=== PATIENT | male | born 1985 | race American Indian/Alaskan Native ===

== ENCOUNTER 2018-11-02 07:10 | Emergency (ER) | payer SELFPAY ==
[2018-11-02] MEDS ORDERED: ALUM-MAG HYDROX-SIMETH 200-200-20MG/5ML PO ONE (08:53)
[2018-11-02] MEDS ORDERED: LIDOCAINE VISCOUS 2% PO ONE (08:53)
[2018-11-02 09:08] LABS: Eosinophils # (Auto) 0.2 K/mm3 (0.0-0.4); Eosinophils % (Auto) 4.5 % (0.0-4.3); Hematocrit 47.2 % (35.5-45.6); Hemoglobin 16.4 gm/dl (11.8-15.2); Lymphocytes # (Auto) 1.8 K/mm3 (1.2-5.4); Lymphocytes % (Auto) 48.3 % (13.4-35.0); Mean Corpuscular HGB Conc 35 % (32-34); Mean Corpuscular Volume 86 fl (84-94); Monocytes # (Auto) 0.4 K/mm3 (0.0-0.8); Monocytes % (Auto) 10.5 % (0.0-7.3); Platelet Count 209 K/mm3 (140-440); Red Blood Count 5.48 M/mm3 (3.65-5.03)
[2018-11-02] MEDS ORDERED: ALUM-MAG HYDROX-SIMETH 200-200-20MG/5ML ONE (09:17)
[2018-11-02] MEDS ORDERED: LIDOCAINE VISCOUS 2% ONE (09:18)
[2018-11-02 09:23] LABS: Alanine Aminotransferase 60 units/L (7-56); Albumin 4.9 g/dL (3.9-5); BUN/Creatinine Ratio 12; Blood Urea Nitrogen 14 mg/dL (9-20); Calcium 9.7 mg/dL (8.4-10.2); Hemolysis Index 4
--- NOTE | 2018-11-02 10:18 | Emergency Department Report ---
ED Chest Pain HPI - General Chief Complaint: Abdominal Pain Stated Complaint: CHEST AND ABD PAIN Time Seen by Provider: 11/02/18 08:44 Source: patient Mode of arrival: Ambulatory Limitations: No Limitations - History of Present Illness Initial Comments: 33-year-old male with no significant past medical history presents last complaining of chest pain and epigastric pain a.m. Pain is substernal and described as a constant pressure worse with inspiration. Patient also having intermittent moderate sharp pain to his right upper quadrant has since resolved. Patient googled his symptoms and thought he might be having a heart attack. Patient finished this about earlier that has since resolved. Now and nausea and diarrhea also reported. Patient traveled to and from [place] last month. He denies calf tenderness, leg edema, history of PE/DVT, smoking, cocaine use, family history of CAD, hypertension, diabetes, elevated cholesterol, or previous known cardiac history. Patient did have a cold last week that has since resolved. Severity scale (0 -10): 6 - Related Data Previous Rx's Medication Instructions Recorded Last Taken Type Omeprazole Magnesium [PriLOSEC Otc] 20 mg PO QDAY #20 tablet. 11/02/18 Unknown Rx traMADol [Ultram 50 MG tab] 50 mg PO Q6HR PRN #20 tablet 11/02/18 Unknown Rx Allergies Allergy/AdvReac Type Severity Reaction Status Date / Time No Known Allergies Allergy Unverified 11/02/18 07:24 Heart Score - HEART Score History: Slightly suspicious EKG: Normal Age: < 45 Risk factors: No known risk factors Troponin: < normal limit HEART Score: 0 ED Review of Systems ROS: Stated complaint: CHEST AND ABD PAIN Other details as noted in HPI Comment: All other systems reviewed and negative ED Past Medical Hx - Past Medical History Previous Medical History?: No - Surgical History Past Surgical History?: No - Social History Smoking Status: Never Smoker Substance Use Type: Marijuana - Medications Home Medications: Home Medications Medication Instructions Recorded Confirmed Last Taken Type Omeprazole Magnesium [PriLOSEC Otc] 20 mg PO QDAY #20 tablet. 11/02/18 Unknown Rx traMADol [Ultram 50 MG tab] 50 mg PO Q6HR PRN #20 tablet 11/02/18 Unknown Rx ED Physical Exam - General Limitations: No Limitations - Other Other exam information: General: no acute distress Head: Atraumatic, normocephalic Eyes: Normal appearance, pupils equal and reactive to light, extraocular movements intact ENT: normal oropharynx Neck: Normal appearance, no stridor, no meningismus, no midline tenderness. Cardiovascular: Regular rate and rhythm, anterior chest wall nontender Chest: Clear to auscultation, no wheezes, rales, or crackles Abdomen: nondistended, soft, nontender, no rebound or guarding Extremity: Normal appearance, no deformity, full range of motion, no calf tenderness or edema Neuro: Alert and oriented 3, clear speech, no gross motor or sensory deficit Skin: No warmth, erythema ED Course Vital Signs 11/02/18 11/02/18 11/02/18 07:28 08:21 08:48 Temperature 98.6 F Pulse Rate 87 72 Respiratory 18 12 12 Rate Blood Pressure 115/77 [Left] Blood Pressure 122/73 [Right] O2 Sat by Pulse 99 100 Oximetry LA score - La Score Age > 65: (0) No Aspirin use within the Past 7 Days: (0) No 3 or more CAD Risk Factors: (0) No 2 or more Angina events in past 24 hrs: (0) No Known CAD with more than 50% Stenosis: (0) No Elevated Cardiac Markers: (0) No ST Deviation Greater than 0.5mm: (0) No LA Score: 0 ED Medical Decision Making - Lab Data Result diagrams: 11/02/18 08:57 11/02/18 08:57 Lab Results 11/02/18 11/02/18 11/02/18 Range/Units 08:57 08:57 08:57 WBC 3.7 L (4.5-11.0) K/mm3 RBC 5.48 H (3.65-5.03) M/mm3 Hgb 16.4 H (11.8-15.2) gm/dl Hct 47.2 H (35.5-45.6) % MCV 86 (84-94) fl MCH 30 (28-32) pg MCHC 35 H (32-34) % RDW 13.0 L (13.2-15.2) % Plt Count 209 (140-440) K/mm3 Lymph % (Auto) 48.3 H (13.4-35.0) % Cannon % (Auto) 10.5 H (0.0-7.3) % Eos % (Auto) 4.5 H (0.0-4.3) % Baso % (Auto) 1.0 (0.0-1.8) % Lymph # 1.8 (1.2-5.4) K/mm3 Cannon # 0.4 (0.0-0.8) K/mm3 Eos # 0.2 (0.0-0.4) K/mm3 Baso # 0.0 (0.0-0.1) K/mm3 Seg Neutrophils % 35.7 L (40.0-70.0) % Seg Neutrophils # 1.3 L (1.8-7.7) K/mm3 D-Dimer 197.19 (0-234) ng/mlDDU Sodium 138 (137-145) mmol/L Potassium 4.2 (3.6-5.0) mmol/L Chloride 99.8 (98-107) mmol/L Carbon Dioxide 28 (22-30) mmol/L Anion Gap 14 mmol/L BUN 14 (9-20) mg/dL Creatinine 1.2 (0.8-1.5) mg/dL Estimated GFR > 60 ml/min BUN/Creatinine Ratio 12 % Glucose 104 H (75-100) mg/dL Calcium 9.7 (8.4-10.2) mg/dL Total Bilirubin 0.80 (0.1-1.2) mg/dL AST 34 (5-40) units/L ALT 60 H (7-56) units/L Alkaline Phosphatase 84 (35-129) units/L Troponin T (0.00-0.029) ng/mL Total Protein 7.8 (6.3-8.2) g/dL Albumin 4.9 (3.9-5) g/dL Albumin/Globulin Ratio 1.7 % Lipase 42 (13-60) units/L // Range/Units 08:57 WBC (4.5-11.0) K/mm3 RBC (3.65-5.03) M/mm3 Hgb (11.8-15.2) gm/dl Hct (35.5-45.6) % MCV (84-94) fl MCH (28-32) pg MCHC (32-34) % RDW (13.2-15.2) % Plt Count (140-440) K/mm3 Lymph % (Auto) (13.4-35.0) % Cannon % (Auto) (0.0-7.3) % Eos % (Auto) (0.0-4.3) % Baso % (Auto) (0.0-1.8) % Lymph # (1.2-5.4) K/mm3 Cannon # (0.0-0.8) K/mm3 Eos # (0.0-0.4) K/mm3 Baso # (0.0-0.1) K/mm3 Seg Neutrophils % (40.0-70.0) % Seg Neutrophils # (1.8-7.7) K/mm3 D-Dimer (0-234) ng/mlDDU Sodium (137-145) mmol/L Potassium (3.6-5.0) mmol/L Chloride (98-107) mmol/L Carbon Dioxide (22-30) mmol/L Anion Gap mmol/L BUN (9-20) mg/dL Creatinine (0.8-1.5) mg/dL Estimated GFR ml/min BUN/Creatinine Ratio % Glucose (75-100) mg/dL Calcium (8.4-10.2) mg/dL Total Bilirubin (0.1-1.2) mg/dL AST (5-40) units/L ALT (7-56) units/L Alkaline Phosphatase (35-129) units/L Troponin T < 0.010 (0.00-0.029) ng/mL Total Protein (6.3-8.2) g/dL Albumin (3.9-5) g/dL Albumin/Globulin Ratio % Lipase (13-60) units/L - EKG Data -: EKG Interpreted by [facility] EKG shows normal: sinus rhythm, axis (qrs 56), QRS complexes (qrsd 70), ST-T waves (no stemi) Rate: normal (62) - Radiology Data Radiology results: report reviewed cxr: naf - Medical Decision Making No cardiac or PE risk factors. Negative d-dimer and troponin wulow heart score. Pain is pleuritic in nature with a course of recent URI symptoms. Repeat treated empirically for costochondritis and H2 alejo due to epigastric pain - Differential Diagnosis gerd, esophagitis, enteritis, myocarditis, pulmonary embolism, pneumonia, p Critical Care Time: No Critical care attestation.: If time is entered above; I have spent that time in minutes in the direct care of this critically ill patient, excluding procedure time. ED Disposition Clinical Impression: Atypical chest pain, Costochondritis, Epigastric pain Disposition: TO HOME OR SELFCARE Is pt being admited?: No Does the pt Need Aspirin: No Condition: Stable Instructions: Costochondritis (ED), Gastroesophageal Reflux Disease (ED) Additional Instructions: Take the medication is prescribed. Follow-up with your doctor or the doctor/clinic provided. Return if symptoms worsen as indicated by your discharge instructions. Prescriptions: Omeprazole Magnesium [PriLOSEC Otc] 20 mg PO QDAY #20 tablet. traMADol [Ultram 50 MG tab] 50 mg PO Q6HR PRN #20 tablet PRN Reason: Pain Referrals: SHO PASCUAL MD [Primary Care Provider] - 3-5 Days Time of Disposition: 10:50
[2018-11-02] MEDS ORDERED: ULTRAM PO ONE (10:49)
[2018-11-02 11:14] VITALS: BP 117/77
--- NOTE | 2018-11-03 15:05 | XRay Report ---
CHEST 2 VIEWS INDICATION: Upper chest pain since this morning. COMPARISON: None FINDINGS: Support devices: None. Heart: Within normal limits. Lungs/pleura: No acute air space or interstitial disease. No pneumothorax. Additional findings: None. IMPRESSION: No acute findings. Signer Name: Franck Back Jr, MD Signed: 11/02/2018 9:47 AM Workstation Name: [id number]
== END 2018-11-02 11:13 | disposition home or self-care (01) ==
LOC: ED 07:10
DX: M94.0 Chondrocostal junction syndrome [Tietze] (principal); R11.0 Nausea; R19.7 Diarrhea, unspecified; F12.10 Cannabis abuse, uncomplicated
CPT/HCPCS: 36415; 71046; 80053; 83690; 84484; 85025; 85379; 93005; 93010